=== PATIENT | female | born 1980 | race African-American/Black ===

== ENCOUNTER 2021-04-22 09:42 | Day surgery (SDC) | payer BC | END 2021-04-22 12:10 | disposition home or self-care (01) | LOC: CSHSDC/OP 09:42 | PROVIDERS: ATTEND Nurse Practitioner Primary Care | DX: Z23 Encounter for immunization (principal); U07.1 COVID-19 | CPT/HCPCS: J3490; M0243; Q0244 ==

== ENCOUNTER 2023-11-30 10:52 | Outpatient (CLI) | payer BC | END 2023-11-30 10:53 | disposition home or self-care (01) | LOC: CSHMAMMO 10:52 | PROVIDERS: ATTEND Obstetrics & Gynecology | DX: Z12.31 Encounter for screening mammogram for malignant neoplasm of breast (principal) | CPT/HCPCS: 77063; 77067 ==